=== PATIENT | female | born 2000 | race Caucasian/White ===

== ENCOUNTER → 2024-06-07 08:49 | Outpatient (REF) | payer OTHER, SELFPAY | LOC: RAD 08:49 | PROVIDERS: ATTENDING PHYSICIAN Nurse Practitioner; FAMILY PHYSICIAN Internal Medicine | DX: N39.46 Mixed incontinence (principal); R35.0 Frequency of micturition; N39.0 Urinary tract infection, site not specified | CPT/HCPCS: 76770; 76830; 76856 ==